=== PATIENT | female | born 1950 | race Caucasian/White ===

== ENCOUNTER 2017-05-25 21:49 | Emergency (ER) | payer OTHER ==
[2017-05-25 21:56] VITALS: BP 135/70
[2017-05-25] MEDS ORDERED: Acyclovir* 200 MG CAP PO ONE (22:22)
--- NOTE | 2017-05-25 22:23 | UC ---
Abdominal Pain Female HPI - HPI Summary HPI Summary: 66 yo female with band like pain from epigastrium around right subcostal area to mid back constant skin sensitive today noted a "bug bite on her back" - History of Current Complaint Chief Complaint: UCAbdominalPain Stated Complaint: ABDOMINAL COMPLAINT Time Seen by Provider: 05/25/17 22:02 Hx Obtained From: Patient Onset/Duration: Gradual Onset, Lasting Days Timing: Constant Severity Initially: Moderate Severity Currently: Moderate Pain Intensity: 4 Pain Scale Used: 0-10 Numeric Location: Epigastric, Other - see imGW Radiates: Yes Radiates to: Back Character: Burning Aggravating Factor(s): Nothing Alleviating Factor(s): Nothing Associated Signs and Symptoms: Positive: Negative Allergies/Adverse Reactions: Allergies Allergy/AdvReac Type Severity Reaction Status Date / Time Tetracycline Allergy Unknown Verified 05/25/17 21:56 Reaction Details Sulfa Allergy Unknown Uncoded 05/25/17 21:56 Reaction Details PMH/Surg Hx/FS Hx/Imm Hx Previously Healthy: Yes - Surgical History Surgical History: None - Family History Known Family History: Positive: None - Social History Alcohol Use: None Substance Use Type: None Smoking Status (MU): Never Smoked Tobacco Review of Systems Constitutional: Negative Skin: Negative, Rash Eyes: Negative ENT: Negative Respiratory: Negative Cardiovascular: Negative Gastrointestinal: Abdominal Pain Genitourinary: Negative Motor: Negative Neurovascular: Negative Musculoskeletal: Negative Neurological: Negative Psychological: Negative All Other Systems Reviewed And Are Negative: Yes Physical Exam Triage Information Reviewed: Yes Appearance: Well-Appearing, No Pain Distress, Well-Nourished Vital Signs: Initial Vital Signs Temp 98.0 F 05/25/17 21:52 Pulse 79 05/25/17 21:52 Resp 16 05/25/17 21:52 BP 135/70 05/25/17 21:52 Pulse Ox 98 05/25/17 21:52 Vital Signs Reviewed: Yes Eyes: Positive: Conjunctiva Clear ENT: Positive: Hearing grossly normal. Negative: Nasal congestion, Nasal drainage, Trismus, Muffled/hoarse voice Neck: Positive: Supple, Nontender Respiratory: Positive: Lungs clear, Normal breath sounds, No respiratory distress Cardiovascular: Positive: RRR, No Murmur Abdominal Exam: Normal Bowel Sounds: Positive: Present Musculoskeletal: Positive: Strength Intact, ROM Intact Neurological Exam: Normal Psychological Exam: Normal Skin Exam: Normal Abd Pain Female Course/Dx - Differential Dx/Diagnosis Provider Diagnoses: SHINGLES Discharge - Discharge Plan Condition: Stable Disposition: HOME Prescriptions: Famciclovir(NF) [Famvir(NF)] 500 mg PO TID #21 tab Patient Education Materials: Shingles (ED) Referrals: No Primary Care Phys,NOPCP [Primary Care Provider] - Additional Instructions: advil or aleve for pain call you provider and set up a follow up appt your urine had some white cells in it so we will send it for a culture Images Front/Back of Body, Lg (Josephine): 1 - CROP OF VESICLES 2 - PAIN 3 - PAIN
== END 2017-05-25 22:32 | disposition home or self-care (01) ==
LOC: UCEAST 21:49
DX: B02.9 Zoster without complications (principal); Z88.1 Allergy status to other antibiotic agents; Z88.2 Allergy status to sulfonamides
CPT/HCPCS: 81003; 87086; 99212; A9270-GY; G0463

== ENCOUNTER 2017-05-28 21:44 | Emergency (ER) | payer OTHER ==
[2017-05-28] MEDS ORDERED: NS 0.9% 1000 ML* 1,000 ML IV SCH (22:45)
[2017-05-28 23:13] LABS: Urine Bacteria Absent (Absent); Urine Bilirubin Negative (Negative); Urine Glucose Negative (Negative); Urine Nitrite Negative (Negative)
[2017-05-28 23:22] LABS: Hematocrit 39 % (35-47); Hemoglobin 13.2 g/dl (12.0-16.0); Mean Corpuscular HGB Conc 33 g/dl (31-36); Mean Corpuscular Hemoglobin 29 pg (27-31); Mean Corpuscular Volume 88 fL (80-97); Mean Platelet Volume 9 um3 (7.4-10.4); Red Cell Distribution Width 14 % (10.5-15); White Blood Count 10.8 10^3/ul (3.5-10.8)
[2017-05-28 23:25] LABS: Albumin 4.5 g/dL (3.2-5.2); BUN/Creatinine Ratio 14.5 (8-20); C Reactive Protein 5.49 mg/L (< 5.00); Calcium 9.2 mg/dL (8.6-10.3); EGFR African American 38.4 (>60); EGFR Non-African American 29.9 (>60); Globulin 3.3 g/dL (2-4); Magnesium 2.4 mg/dL (1.9-2.7); Potassium 3.9 mmol/L (3.5-5.0); Total Bilirubin 0.4 mg/dL (0.2-1.0); Total Protein 7.8 g/dL (6.4-8.9)
[2017-05-28 23:39] LABS: TSH (Thyroid Stimulating Horm) 5.44 mcIU/mL (0.34-5.60)
[2017-05-29] MEDS ORDERED: NS 0.9% 1000 ML* 2,000 ML IV ONE (00:35)
--- NOTE | 2017-05-29 02:27 | ED ---
Chicho Brock Nikita, scribed for Reji Day MD on 05/28/17 at 2348 . Complex/Multi-Sys Presentation - HPI Summary HPI Summary: This patient is a 66 year old F presenting to ED with a chief complaint of lower R CP and dizziness. Pt has been having intermittent lower R CP pain (rib area) since 1 week ago. Today at 193, pt felt dizziness (spinning, alleviated by sitting down). At 2044, she felt light-headed (lasted 10 minutes), sharp pain at her R shoulder blades and in the R side CP, and burning pain in the R side of the back. The CC is described as like someone is kicking me in the ribs . The patient rates the pain 5/10 in severity. Symptoms aggravated by nothing. Symptoms alleviated by nothing. Patient reports feeling warm. Patient denies weakness, numbness, diaphoresis, and abdominal pain. 3 days ago, pt was seen at [facility] for burning back pain and was dx with Shingles. - History Of Current Complaint Chief Complaint: EDDizziness Time Seen by Provider: 05/28/17 23:08 Hx Obtained From: Patient Onset/Duration: Sudden Onset, Lasting Weeks - 1 week ago, Still Present Timing: Intermittent, Lasting:, Minutes Severity Currently: Moderate Severity Initially: Moderate Location: Pain At: - R side CP and R side of back Character: Sharp, Unable To Describe - burning (from Shingles) Aggravating Factor(s): nothing Alleviating Factor(s): nothing Associated Signs And Symptoms: Positive: Other - Pt has been having intermittent lower R CP pain since 1 week ago. Today at 1930, pt felt dizziness (spinning, alleviated by sitting down). At 2044, she felt light-headed (lasted 10 minutes), sharp pain at her shoulder blades and in the R side CP, and burning pain in the R side of the back. Patient reports feeling warm. Patient denies weakness, numbness, diaphoresis, and abdominal pain. - Allergies/Home Medications Allergies/Adverse Reactions: Allergies Allergy/AdvReac Type Severity Reaction Status Date / Time Tetracycline Allergy Unknown Verified 05/25/17 21:56 Reaction Details Sulfa Allergy Unknown Uncoded 05/25/17 21:56 Reaction Details PMH/Surg Hx/FS Hx/Imm Hx Endocrine/Hematology History: Reports: Hx Diabetes - boarder line Denies: Hx Thyroid Disease Cardiovascular History: Reports: Hx Hypertension Respiratory History: Denies: Hx Asthma, Hx Chronic Obstructive Pulmonary Disease (COPD) GI History: Denies: Hx Ulcer Infectious Disease History: No Infectious Disease History: Denies: Hx Hepatitis, Hx Human Immunodeficiency Virus (HIV), Traveled Outside the [place] in Last 30 Days - Family History Known Family History: Positive: Diabetes Negative: Cardiac Disease, Hypertension - Social History Alcohol Use: None Substance Use Type: Reports: None Smoking Status (MU): Never Smoked Tobacco Review of Systems Positive: Other - Warm. Negative: Skin Diaphoresis Positive: Chest Pain - lower R side (rib area) Negative: Abdominal Pain Positive: Other - burning pain on R side of back (Shingles), sharp pain at her R shoulder blades Neurological: Other - dizziness (spinning), light-headed Negative: Weakness, Numbness Psychological: Normal All Other Systems Reviewed And Are Negative: Yes Physical Exam Triage Information Reviewed: Yes Vital Signs On Initial Exam: Initial Vitals Temp Pulse Resp BP Pulse Ox 97.7 F 95 20 138/72 99 05/28/17 21:47 05/28/17 21:47 05/28/17 21:47 05/28/17 21:47 05/28/17 21:47 Vital Signs Reviewed: Yes Appearance: Positive: Well-Appearing, No Pain Distress Skin: Positive: Warm, Skin Color Reflects Adequate Perfusion, Dry Head/Face: Positive: Other - 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 Eyes: Positive: EOMI, EDE ENT: Positive: Normal ENT inspection, TMs normal Neck: Positive: Supple, Nontender Respiratory/Lung Sounds: Positive: Clear to Auscultation, Breath Sounds Present Cardiovascular: Positive: RRR, Other - nontender Abdomen Description: Positive: Nontender, Soft Bowel Sounds: Positive: Present Musculoskeletal: Positive: Strength/ROM Intact, Other - Just to R of about T5, she has an area about 5cm x 3cm with vesicles with an erythematous base which appears to be shingles Neurological: Positive: Normal, Alert, Oriented to Person Place, Time, CN Intact II-III, Other - no neurological deficit other than the facial droop due to chronic bells palsy Psychiatric: Positive: Affect/Mood Appropriate - Guido Coma Scale Coma Scale Total: 15 Diagnostics - Vital Signs Vital Signs Temp Pulse Resp BP Pulse Ox 05/28/17 21:47 97.7 F 95 20 138/72 99 - Laboratory Lab Results: Lab Results 05/28/17 05/28/17 05/28/17 Range/Units 22:45 22:45 22:45 WBC 10.8 (3.5-10.8) 10^3/ul RBC 4.50 (4.0-5.4) 10^6/ul Hgb 13.2 (12.0-16.0) g/dl Hct 39 (35-47) % MCV 88 (80-97) fL MCH 29 (27-31) pg MCHC 33 (31-36) g/dl RDW 14 (10.5-15) % Plt Count 277 (150-450) 10^3/ul MPV 9 (7.4-10.4) um3 Neut % (Auto) 66.4 (38-83) % Lymph % (Auto) 24.9 L (25-47) % Park % (Auto) 6.0 (1-9) % Eos % (Auto) 1.9 (0-6) % Baso % (Auto) 0.8 (0-2) % Absolute Neuts (auto) 7.2 (1.5-7.7) 10^3/ul Absolute Lymphs (auto) 2.7 (1.0-4.8) 10^3/ul Absolute Monos (auto) 0.7 (0-0.8) 10^3/ul Absolute Eos (auto) 0.2 (0-0.6) 10^3/ul Absolute Basos (auto) 0.1 (0-0.2) 10^3/ul Absolute Nucleated RBC 0.01 10^3/ul Nucleated RBC % 0 INR (Anticoag Therapy) 0.90 (0.89-1.11) APTT 27.4 (26.0-36.3) seconds Sodium 138 (133-145) mmol/L Potassium 3.9 (3.5-5.0) mmol/L Chloride 104 (101-111) mmol/L Carbon Dioxide 26 (22-32) mmol/L Anion Gap 8 (2-11) mmol/L BUN 25 H (6-24) mg/dL Creatinine 1.72 H (0.51-0.95) mg/dL Est GFR ( Amer) 38.4 (>60) Est GFR (Non-Af Amer) 29.9 (>60) BUN/Creatinine Ratio 14.5 (8-20) Glucose 113 H (70-100) mg/dL Lactic Acid (0.5-2.0) mmol/L Calcium 9.2 (8.6-10.3) mg/dL Magnesium 2.4 (1.9-2.7) mg/dL Total Bilirubin 0.40 (0.2-1.0) mg/dL AST 15 (13-39) U/L ALT 18 (7-52) U/L Alkaline Phosphatase 115 H (34-104) U/L Troponin I 0.00 (<0.04) ng/mL C-Reactive Protein 5.49 H (< 5.00) mg/L Total Protein 7.8 (6.4-8.9) g/dL Albumin 4.5 (3.2-5.2) g/dL Globulin 3.3 (2-4) g/dL Albumin/Globulin Ratio 1.4 (1-3) Lipase 34 (11.0-82.0) U/L TSH 5.44 (0.34-5.60) mcIU/mL Urine Color Urine Appearance Urine pH (5-9) Ur Specific [place] (1.010-1.030) Urine Protein (Negative) Urine Ketones (Negative) Urine Blood (Negative) Urine Nitrate (Negative) Urine Bilirubin (Negative) Urine Urobilinogen (Negative) Ur Leukocyte Esterase (Negative) Urine WBC (Auto) (Absent) Urine RBC (Auto) (Absent) Ur Squamous Epith Cells (Absent) Urine Bacteria (Absent) Hyaline Casts (Absent) Urine Glucose (Negative) 05/28/17 05/28/17 Range/Units 22:45 22:45 WBC (3.5-10.8) 10^3/ul RBC (4.0-5.4) 10^6/ul Hgb (12.0-16.0) g/dl Hct (35-47) % MCV (80-97) fL MCH (27-31) pg MCHC (31-36) g/dl RDW (10.5-15) % Plt Count (150-450) 10^3/ul MPV (7.4-10.4) um3 Neut % (Auto) (38-83) % Lymph % (Auto) (25-47) % Park % (Auto) (1-9) % Eos % (Auto) (0-6) % Baso % (Auto) (0-2) % Absolute Neuts (auto) (1.5-7.7) 10^3/ul Absolute Lymphs (auto) (1.0-4.8) 10^3/ul Absolute Monos (auto) (0-0.8) 10^3/ul Absolute Eos (auto) (0-0.6) 10^3/ul Absolute Basos (auto) (0-0.2) 10^3/ul Absolute Nucleated RBC 10^3/ul Nucleated RBC % INR (Anticoag Therapy) (0.89-1.11) APTT (26.0-36.3) seconds Sodium (133-145) mmol/L Potassium (3.5-5.0) mmol/L Chloride (101-111) mmol/L Carbon Dioxide (22-32) mmol/L Anion Gap (2-11) mmol/L BUN (6-24) mg/dL Creatinine (0.51-0.95) mg/dL Est GFR ( Amer) (>60) Est GFR (Non-Af Amer) (>60) BUN/Creatinine Ratio (8-20) Glucose (70-100) mg/dL Lactic Acid 1.2 (0.5-2.0) mmol/L Calcium (8.6-10.3) mg/dL Magnesium (1.9-2.7) mg/dL Total Bilirubin (0.2-1.0) mg/dL AST (13-39) U/L ALT (7-52) U/L Alkaline Phosphatase (34-104) U/L Troponin I (<0.04) ng/mL C-Reactive Protein (< 5.00) mg/L Total Protein (6.4-8.9) g/dL Albumin (3.2-5.2) g/dL Globulin (2-4) g/dL Albumin/Globulin Ratio (1-3) Lipase (11.0-82.0) U/L TSH (0.34-5.60) mcIU/mL Urine Color Yellow Urine Appearance Cloudy Urine pH 5.0 (5-9) Ur Specific [place] 1.021 (1.010-1.030) Urine Protein 1+(30 mg/dl) H (Negative) Urine Ketones Negative (Negative) Urine Blood Negative (Negative) Urine Nitrate Negative (Negative) Urine Bilirubin Negative (Negative) Urine Urobilinogen Negative (Negative) Ur Leukocyte Esterase 3+ H (Negative) Urine WBC (Auto) 3+(>20/hpf) H (Absent) Urine RBC (Auto) 3+(>10/hpf) H (Absent) Ur Squamous Epith Cells Present H (Absent) Urine Bacteria Absent (Absent) Hyaline Casts Present H (Absent) Urine Glucose Negative (Negative) Result Diagrams: 05/28/17 22:45 05/28/17 22:45 Lab Statement: Any lab studies that have been ordered have been reviewed, and results considered in the medical decision making process. - CT CTA Chest CT Interpretation Completed By: Radiologist - No definite acute pathology. 5 mm left lower lobe nodule likely needs no additional evaluation if the patient is not at high risk for neoplasm. Bilateral renal stones and scarring. ED physician has reviewed this radiology report and agrees. Brain CT CT Interpretation Completed By: Radiologist - No acute pathology. ED physician has reviewed this radiology report and agrees. - Ultrasound No standard instances Ultrasound Interpretation Completed By: Radiologist - US Abdomen reveals large stone may be impacted in the gallbladder neck without definite secondary signs of cholecystitis. Mild CBD dilation is nonspecific but a CBD stone is not excluded. Consider further evaluation is consistent with HIDA scan. Mildly atrophic and scarred right kidney. ED physician has reviewed this radiology report and agrees. Re-Evaluation - Re-Evaluation First Eval Re-Evaluation Time: 01:21 Comment: Discussed with pt about CT and US results. Complex Multi-Symp Course/Dx Assessment/Plan: This patient is a 66 year old F presenting to ED with a chief complaint of lower R CP and dizziness. Pt has been having intermittent lower R CP pain (rib area) since 1 week ago. Today at 1930, pt felt dizziness (spinning , alleviated by sitting down). At 2044, she felt light-headed (lasted 10 minutes ), sharp pain at her R shoulder blades and in the R side CP, and burning pain in the R side of the back. The CC is described as like someone is kicking me in the ribs. The patient rates the pain 5/10 in severity. Symptoms aggravated by nothing. Symptoms alleviated by nothing. Patient reports feeling warm. Patient denies weakness, numbness, diaphoresis, and abdominal pain. 3 days ago, pt was seen at [facility] for burning back pain and was dx with Shingles. US abdomen reveals large stone may be impacted in the gallbladder neck without definite secondary signs of cholecystitis. Mild CBD dilation is nonspecific but a CBD stone is not excluded. Consider further evaluation is consistent with HIDA scan. Mildly atrophic and scarred right kidney. CTA chest reveals no definite acute pathology. 5 mm left lower lobe nodule likely needs no additional evaluation if the patient is not at high risk for neoplasm. Bilateral renal stones and scarring. Brain CT reveals no acute pathology. ED physician has reviewed these radiology reports and agrees. In the ED course, pt was given fluids. Medications reviewed. Allergies noted. Consulted Dr. Mcneil at [address] Mccord at 0139 who recommends to get a surgical consult, MRCP, and to admit the pt. Pt will be discharged. Pt is agreeable with this plan. DISCUSSED RESULTS WITH PATIENT. DISCUSSED WITH GI, DR MCCORD. HE RECOMMENDED ADMISSION, MRCP AND SURGICAL CONSULTATION. HOSPITALIST ACCEPTED FOR ADMISSION. PATIENT, AFTER CONSIDERATION, DECLINED ADMISSION. SHE WISHES TO F/U OUT PATIENT. SHE AGREES TO RETURN IF WORSE OR ANY QUESTIONS/CONCERNS. NO CRITICAL CARE TIME. - Diagnoses Provider Diagnoses: Biliary colic, Gall stone, Chest pain, Abdominal pain - Physician Notifications Discussed Care Of Patient With: Halina Mcneil Time Discussed With Above Provider: 01:27 Instructed by Provider To: Other - Consulted Dr. Mcneil about pt. Consulted Dr. Mccord at 0139 who recommends to get a surgical consult, MRCP, and to admit the pt. Discharge - Discharge Plan Condition: Stable Disposition: HOME Patient Education Materials: Chest Pain (ED), Biliary Colic (ED), Gallstones ( ED), Abdominal Pain (ED) Referrals: Giuliana Gallegos NP [Primary Care Provider] - [facility] [Provider Group] [facility] [Provider Group] Additional Instructions: FOLLOW UP WITH YOUR PRIMARY CARE DOCTOR, GI AND SURGERY, DR CELIS. CALL TOMORROW FOR FOLLOW UP. RETURN TO THE EMERGENCY DEPARTMENT FOR ANY WORSENING OF YOUR CONDITION; PAIN, FEVER, VOMITING, YOU FEEL ILL OR QUESTIONS OR CONCERNS. The documentation as recorded by the scribe, Chicho,Anjel accurately reflects the service I personally performed and the decisions made by me, Reji Day MD.
[2017-05-29 02:35] VITALS: BP 133/76
--- NOTE | 2017-05-29 08:14 | RAD ---
Indication: Sudden onset dizziness and lightheadedness. Comparison: April 04, 2009 Technique: Noncontrast CT vertex of skull through foramen magnum. Report: The sulci, ventricles, and basal cisterns are normal for age. Velasquez matter white matter differentiation is preserved without evidence for edema. No intra or extra axial hemorrhage, mass, or fluid collection detected. Unremarkable visualized orbital contents. Unremarkable calvarium and skull base. Unremarkable scalp. The visualized paranasal sinuses and mastoid air spaces are clear. IMPRESSION: Negative unenhanced head CT.
--- NOTE | 2017-05-29 08:14 | RAD ---
HISTORY: Right upper quadrant pain. COMPARISONS: CT abdomen pelvis September 20, 2014 demonstrated at least one large hyperattenuating stones in the gallbladder measuring 2.2 cm. TECHNIQUE: Multiple transverse and longitudinal ultrasound images were obtained of the right upper quadrant. FINDINGS: LIVER: The liver is homogenously hyperechogenic without focal suspicious mass or surface irregularity.. Normal hepatic and portal venous blood flow is duplicated with color flow imaging. There is no gross intrahepatic biliary duct dilatation. GALLBLADDER AND EXTRAHEPATIC BILIARY DUCT: Within the gallbladder lumen there is a 2.8 cm echogenic shadowing stone at appears to be immobile at the gallbladder neck. The gallbladder wall is top normal in thickness measuring 3 mm. There is no definite pericholecystic fluid. There is no pericholecystic fluid or gallbladder wall thickening. The common bile duct measures a maximum diameter of 8 mm. PANCREAS: The portions of the pancreas not obscured by bowel gas are normal in appearance. RIGHT KIDNEY: The right kidney is normal in size, morphology and echogenicity. IMPRESSION: 1. CHOLELITHIASIS WITH A MILDLY ENLARGED COMMON BILE DUCT MEASURING 8 MM IN WIDTH. FURTHER CHARACTERIZATION COULD BE MADE WITH HIDA SCAN IF CLINICALLY WARRANTED. 2. LIKELY HEPATIC STEATOSIS OR OTHER CHRONIC INFILTRATIVE DISEASE OF THE LIVER.
--- NOTE | 2017-05-29 08:20 | RAD ---
INDICATION: Chest pain COMPARISON: CT abdomen pelvis July 20, 2015 TECHNIQUE: Noncontrast axial source images were obtained from the thoracic inlet to the hemidiaphragms. Coronal and sagittal reconstructed images were acquired. The visualized neck to include the thyroid appear normal. Chest wall: There are no acute abnormalities of the bony thorax or chest wall. There is no supraclavicular, infraclavicular, or axillary lymphadenopathy. Lungs : There are no pulmonary parenchymal masses or infiltrates. The pulmonary interstitium appears normal. There are no endobronchial lesions. Cardiomediastinal structures: The heart is normal in size. There is no pericardial effusion. There is no evidence of aortic aneurysm or dissection. The pulmonary vessels appear normal. There is no mediastinal or hilar adenopathy. The esophagus appears normal. Pleura : There are no pleural-based masses or effusions. Other: Limited views the upper abdomen show a large gallstone in the neck of the gallbladder, unchanged. There is left bilateral renal parenchymal scarring with lobulated contours of the kidneys and left renal calcifications. The appearance of the visualized portions of each kidney is unchanged. IMPRESSION: NO ACUTE CT FINDINGS. NO ACUTE LUNG FINDINGS. CHOLELITHIASIS, UNCHANGED. RENAL SCARRING WITH RENAL CALCIFICATIONS, UNCHANGED
--- NOTE | 2017-05-31 13:00 | PN ---
Progress Note - Progress Note Date of Service: 05/31/17 Note: Patient urine culture grew Strept group b 25-50,000 which is not a significant amount to treat at this time being asymptomatic.
== END 2017-05-29 02:33 | disposition home or self-care (01) ==
LOC: ED 21:44
DX: R07.9 Chest pain, unspecified (principal); K80.50 Calculus of bile duct without cholangitis or cholecystitis without obstruction; R10.9 Unspecified abdominal pain; R42 Dizziness and giddiness; Z86.79 Personal history of other diseases of the circulatory system; R73.09 Other abnormal glucose
CPT/HCPCS: 36415; 70450; 71250; 76705; 80053; 81003; 81015; 83605; 83690; 83735; 84443; 84484; 85025; 85379; 85610; 85730; 86140; 87077; 87086; 99284

== ENCOUNTER 2017-09-22 14:28 | Emergency (ER) | payer OTHER ==
--- NOTE | 2017-09-22 15:58 | RAD ---
INDICATION: Fall. Left elbow injury COMPARISON: Left elbow October 16, 2015 TECHNIQUE: AP, lateral, and oblique views were obtained. FINDINGS: There is a fracture the radial head. The fractures nondisplaced. No other fractures are evident. There is a joint effusion consistent with hemarthrosis in the setting of acute trauma. IMPRESSION: AGE-INDETERMINATE RADIAL HEAD FRACTURE. HEMARTHROSIS.
--- NOTE | 2017-09-22 15:58 | RAD ---
INDICATION: Fall. Left wrist injury COMPARISON: Left wrist September 07, 2015 TECHNIQUE: AP, lateral, and oblique views were obtained. FINDINGS: There is no acute fracture. There is an old ulnar styloid fracture. The radiocarpal joint is intact. The carpals articulate normally. The soft tissues are normal. IMPRESSION: REMOTE ULNAR STYLOID FRACTURE. NO ACUTE FINDINGS.
[2017-09-22 17:02] VITALS: BP 140/80
--- NOTE | 2017-09-22 18:02 | UC ---
Elbow Pain - HPI Summary HPI Summary: 66 yo WF h/o DM and HTN c/o left elbow pain s/p fall today in dining room floor with wet shoes. Has old radial head fracture at the same site of injury 08/2015 and today she has trouble extending her arm and with pronation and supination - History of Current Complaint Chief Complaint: UCUpperExtremity Stated Complaint: ARM INJURY Time Seen by Provider: 09/22/17 17:13 Hx Obtained From: Patient, Family/Enroute Controller Severity Initially: Moderate Pain Intensity: 7 Character: Sharp, Aching, Throbbing Aggravating Factor(s): Movement Alleviating Factor(s): Rest Associated Signs And Symptoms: Positive: Swelling - Allergies/Home Medications Allergies/Adverse Reactions: Allergies Allergy/AdvReac Type Severity Reaction Status Date / Time MS Tetracycline Allergy Unknown Verified 09/22/17 14:58 [Tetracycline] Reaction Details Sulfa Allergy Unknown Uncoded 09/22/17 14:58 Reaction Details PMH/Surg Hx/FS Hx/Imm Hx Previously Healthy: No Endocrine History: Diabetes Cardiovascular History: Hypertension - Surgical History Surgical History: None - Family History Known Family History: Positive: None, Diabetes Negative: Cardiac Disease, Hypertension - Social History Alcohol Use: None Substance Use Type: None Smoking Status (MU): Never Smoked Tobacco Review of Systems Constitutional: Negative Skin: Negative Eyes: Negative ENT: Negative Respiratory: Negative Cardiovascular: Negative Gastrointestinal: Negative Genitourinary: Negative Motor: Decreased ROM - cannot extend left elbow or rotate her forearm due to pain, Other Neurovascular: Negative Musculoskeletal: Negative Neurological: Negative Psychological: Negative All Other Systems Reviewed And Are Negative: Yes Physical Exam Triage Information Reviewed: Yes Vital Signs: Initial Vital Signs Temp 36.2 C 09/22/17 14:53 Pulse 70 09/22/17 14:53 Resp 18 09/22/17 14:53 BP 138/80 09/22/17 14:53 Pulse Ox 100 09/22/17 14:53 Eye Exam: Normal ENT Exam: Normal Dental Exam: Normal Neck exam: Normal Neck: Positive: 1 Respiratory Exam: Normal Cardiovascular Exam: Normal Abdominal Exam: Normal Musculoskeletal: Positive: Strength Limited @ - difficulty extending left elbow and with pronation and supination of left forearm, TTP in the left radial head region, ROM intact on left wrist and fingers, NVI, 2+ radial pulse Neurological Exam: Normal Psychological Exam: Normal Skin Exam: Normal Elbow Pain Course/Dx - Course Course Of Treatment: XR Orthoglass posterior splint applied with sling pt has a personal orthopedist whom she will call on Monday for follow up. 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 Fall. Elevated BP due to acute pain. H/o HTN Discharge - Discharge Plan Condition: Stable Disposition: HOME Patient Education Materials: Elbow Fracture (ED) Forms: *Work Release Referrals: Giuliana Gallegos NP [Primary Care Provider] - Additional Instructions: Follow up with orthopedics on monday
== END 2017-09-22 18:00 | disposition home or self-care (01) ==
LOC: UCEAST 14:28
DX: S52.125A Nondisplaced fracture of head of left radius, initial encounter for closed fracture (principal); S52.615A Nondisplaced fracture of left ulna styloid process, initial encounter for closed fracture; W18.39XA Other fall on same level, initial encounter; Y93.9 Activity, unspecified; Y92.001 Dining room of unspecified non-institutional (private) residence as the place of occurrence of the external cause; E11.9 Type 2 diabetes mellitus without complications; I10 Essential (primary) hypertension; Z88.2 Allergy status to sulfonamides
CPT/HCPCS: 99212; G0463

== ENCOUNTER 2018-12-18 09:19 | Day surgery (SDC) | payer MEDICARE, OTHER ==
[~2018-12-18 09:19] MED LIST: Buffered Lidocaine 1% SYRIN* 1 ML/SYRINGE INTRADERM ONE; Lactated Ringers 1000 ML Bag* 1,000 ML IV SCH
[2018-12-18] MEDS ORDERED: Buffered Lidocaine 1% SYRIN* 1 ML/SYRINGE INTRADERM ONE (09:39)
[2018-12-18] MEDS ORDERED: ceFAZolin 2 GM PREMIX in ORs 2 GM/50 ML BAG IVPB ONE (09:39)
[2018-12-18] MEDS ORDERED: fentaNYL* 50 MCG/ML 2 ML VIAL (100 MCG VIAL) ONE ×3 (11:01→14:10)
[2018-12-18] MEDS ORDERED: Midazolam* 1 MG/ML 2 ML VIAL (2 MG) ONE (11:01)
[2018-12-18] MEDS ORDERED: Bupivacaine 0.25% EPI 200,000* 30 ML SDV ONE (11:06)
[2018-12-18] MEDS ORDERED: Famotidine IV* 10 MG/ML 2 ML (20 mg) ONE (11:17)
[2018-12-18] MEDS ORDERED: Dexamethasone IV* 4 MG/ML 1 ML (4 MG) ONE (11:29)
[2018-12-18] MEDS ORDERED: Propofol* 10 MG/ML 20 ML BTL ONE (11:29)
[2018-12-18] MEDS ORDERED: Ondansetron INJ* 2 MG/ML VIAL ONE ×2 (11:29→14:11)
[2018-12-18] MEDS ORDERED: Succinylcholine* 20 MG/ML 10 ML VIAL ONE (11:29)
[2018-12-18] MEDS ORDERED: Ketorolac INJ* 30 MG/ML 1 ML VIAL ONE (11:29)
[2018-12-18] MEDS ORDERED: Cisatracurium* 2 MG/ML MDV 5 ML ONE (11:30)
[2018-12-18] MEDS ORDERED: DiMENhydriNATE IV* 50 MG/ML VIAL IV PUSH PRN (11:42)
[2018-12-18] MEDS ORDERED: Ondansetron INJ* 2 MG/ML VIAL IV PRN (11:42)
[2018-12-18] MEDS ORDERED: Acetaminophen TAB* 325 MG PO PRN (11:42)
[2018-12-18] MEDS ORDERED: Naloxone* 0.4 MG/ML 1 ML VIAL IV PRN (11:42)
[2018-12-18] MEDS ORDERED: fentaNYL* 50 MCG/ML 2 ML VIAL (100 MCG VIAL) IV PRN (11:42)
[2018-12-18] MEDS ORDERED: Scopolamine 1.5 mg* PATCH TRANSDERM PRN (11:42)
[2018-12-18] MEDS ORDERED: diPHENhydraMINE IV* 50 MG/ML 1 ml VIAL (BENADRYL) IV PRN (11:42)
[2018-12-18] MEDS ORDERED: PROCHLORPERAZINE INJ 5 MG/ML 2 ML VIAL IV PRN (11:42)
[2018-12-18] MEDS ORDERED: HYDROcodone/ACETAMIN 5-325 MG* 1 TAB PO PRN ×2 (11:42)
[2018-12-18] MEDS ORDERED: Lidocaine 2% PF * 5 ML VIAL ONE (11:47)
[2018-12-18] MEDS ORDERED: EPHEDrine (Pressors)* 50 MG/ML VIAL ONE (11:50)
[2018-12-18] MEDS ORDERED: Scopolamine 1.5 mg* PATCH ONE (14:11)
[2018-12-18] MEDS ORDERED: DiMENhydriNATE IV* 50 MG/ML VIAL ONE (14:18)
[2018-12-18] MEDS ORDERED: Acetaminophen TAB* 325 MG ONE (14:45)
[2018-12-18 15:56] VITALS: BP 122/75
--- NOTE | 2018-12-19 02:11 | OP ---
CC: Giuliana Gallegos NP at [facility] [place] * DATE OF OPERATION: 12/18/18 - [facility] DATE OF : 54 SURGEON: Dr. Bautista. CHIROPRACTIC TEACHER: Jagruti Murrell NP ANESTHESIA: General endotracheal. ANESTHESIOLOGIST: Dr. Mccain. PRE-OP DIAGNOSIS: Symptomatic cholelithiasis. POST-OP DIAGNOSIS: Symptomatic cholelithiasis. OPERATIVE PROCEDURE: Laparoscopic cholecystectomy. ESTIMATED BLOOD LOSS: Minimal. IV FLUIDS: Crystalloid. SPECIMENS: Gallbladder and contents. DRAINS: None. COMPLICATIONS: None. COUNTS: The instrument, needle, and sponge counts were correct. DESCRIPTION OF PROCEDURE: The patient was brought to the operating room and placed on the table supine. Sequential compression devices were placed on both lower extremities. General anesthesia was administered. The abdomen was prepped and draped in the usual sterile fashion and a time-out was performed. Local anesthetic was infiltrated to the skin and soft tissue prior to making each incision. Transumbilical incision was created using an open technique. After accessing the peritoneal cavity, carbon dioxide was insufflated through a 12-mm trocar to a pressure of 15 mmHg. Under direct visualization, a 5-mm trocar was placed in the subxiphoid position in the right upper quadrant. Gallbladder was identified and appeared to be chronically inflamed. There was a large stone impacted in the neck of the gallbladder that was immobile. This made the manipulation of the gallbladder difficult. Gallbladder was also rather tensely distended. Upon grasping the gallbladder with the grasped at the fundus and retracting it cephalad, the gallbladder entered and clear bile was noted. Endoscope suction was used to control spillage. Due to the large gallstone in the neck, it was decided to try and milk this back towards the fundus; however, again this was quite large and impacted. Therefore , in order to dislodge it, a cholecystomy was enlarged in order to extract the stone. After doing so, the gallbladder could be properly manipulated and the peritoneum investing the gallbladder and the infundibulum was excised and peeled away. The cystic duct and cystic artery were able to bluntly dissected out and doubly clipped and divided. The gallbladder was freed from its attachments to the liver staying in the avascular plane with the use of a cautery. The gallbladder was freed. The gallbladder and the large stone were placed in an endoscopic retrieval bag and retrieved through the umbilical port site. Copious lavage of the abdomen was performed until clear. Hemostasis was assured and clips were noted to be intact. Ports were removed under direct visualization and carbon dioxide was released. The umbilical site was closed with 0 Vicryl to approximate the fascia. Skin incisions were closed with 4-0 Monocryl in subcuticular fashion. Steri-Strips applied. The patient tolerated the procedure well, was extubated and transferred to the recovery room in stable condition. [id number]/[facility] #: [id number] [facility]ITAL[facility]audia
[2018-12-21] MEDS ORDERED: Scopolamine PATCH Remove* 1 NOTE MISC PATCH OFF ONE (11:43)
== END 2018-12-18 15:55 | disposition home or self-care (01) ==
LOC: OR 09:19
PROVIDERS: ATTEND Surgery
DX: K80.10 Calculus of gallbladder with chronic cholecystitis without obstruction (principal); E11.9 Type 2 diabetes mellitus without complications; Z79.84 Long term (current) use of oral hypoglycemic drugs; I10 Essential (primary) hypertension; E78.5 Hyperlipidemia, unspecified
CPT/HCPCS: 88304; A9270-GY; J0330; J0690; J1100; J1240; J1885; J2250; J2405; J2704; J3010

== ENCOUNTER 2022-07-22 06:46 | Observation (INO) ==
[~2022-07-22 06:46] MED LIST changes: +Buffered Lidocaine 1% SYRIN 1 ml INTRADERM ONE; -Buffered Lidocaine 1% SYRIN* 1 ML/SYRINGE INTRADERM ONE; +Famotidine IV 10 MG/ML 2 ml VIAL (20 mg) IV ONE; -Lactated Ringers 1000 ML Bag* 1,000 ML IV SCH; +Lactated Ringers 1000 ml BAG 1,000 ML IV SCH
[2022-07-22] MEDS ORDERED: Famotidine IV 10 MG/ML 2 ml VIAL (20 mg) ONE (07:39)
[2022-07-22] MEDS ORDERED: ceFAZolin 2 GM PREMIX 2 GM/50 ML BAG ONE (07:39)
[2022-07-22] MEDS ORDERED: Midazolam 2 mg/2 ml VIAL 1 mg/ml 2 ml VIAL (2 mg) ONE (08:11)
[2022-07-22] MEDS ORDERED: Lidocaine 2% PF 5 ML VIAL ONE (08:11)
[2022-07-22] MEDS ORDERED: fentaNYL 100 mcg/2 ml 50 MCG/ML VIAL ONE ×2 (08:12→12:41)
[2022-07-22] MEDS ORDERED: Phenylephrine IV 10 MG/ML 1 ml VIAL ONE (08:20)
[2022-07-22] MEDS ORDERED: Rocuronium 50 mg VIAL 10 mg/ml 5 ml VIAL (50 mg) ONE (08:59)
[2022-07-22] MEDS ORDERED: Dexamethasone IV 4 MG/ML VIAL 1 ml VIAL ONE (08:59)
[2022-07-22] MEDS ORDERED: Ondansetron 4 mg VIAL 2 MG/ML 2 ml VIAL ONE ×2 (08:59→15:35)
[2022-07-22] MEDS ORDERED: Ropivacaine 5 MG/ML 20 ML VIAL 0.5% (100 MG) ONE (09:12)
[2022-07-22] MEDS ORDERED: HYDROmorphone 1 MG/1 ML SYRINGE IV PRN (10:34)
[2022-07-22] MEDS ORDERED: Naloxone 0.4 mg VIAL 0.4 mg/ml 1 ml VIAL IV PRN (10:34)
[2022-07-22] MEDS ORDERED: Magnesium Hydroxide LIQ 30 ML UDC PO PRN (10:37)
[2022-07-22] MEDS ORDERED: Lactulose 30 ml UDC PO PRN (10:37)
[2022-07-22] MEDS ORDERED: Ondansetron 4 mg VIAL 2 MG/ML 2 ml VIAL IV PRN (10:37)
[2022-07-22] MEDS ORDERED: Morphine 2 MG/ML SYRINGE IV PRN (10:37)
[2022-07-22] MEDS ORDERED: Ondansetron ODT 4 mg TAB 4 MG TAB PO PRN (10:37)
[2022-07-22] MEDS ORDERED: HYDROmorphone 0.5 MG/0.5 ML SYRINGE ONE (10:41)
[2022-07-22] MEDS ORDERED: Sugammadex 500 MG/5 ML 5 ml VIAL IV PUSH ONE (11:33)
[2022-07-22] MEDS: fentaNYL 100 mcg/2 ml 50 MCG/ML VIAL IV PRN ×3 (12:42→14:06)
[2022-07-22] MEDS ORDERED: Acetaminophen IV 1 GM/100ML 1,000 MG/100 ML BAG IV ONE ×2 (12:59→13:00)
[2022-07-22] MEDS ORDERED: Dextrose 50% Syringe 50 ml 25 GM/50 ML SYRINGE IV PUSH PRN (15:17)
[2022-07-22] MEDS: Lactated Ringers 1000 ml BAG 1,000 ML IV SCH (15:38)
[2022-07-22] MEDS: ceFAZolin 1 GM ADVAN 1 GM in NS 0.9% 50 ML 50 ML IVPB SCH (18:11)
[2022-07-22] MEDS: Magnesium Hydroxide LIQ 30 ML UDC PO SCH (20:25)
[2022-07-22] MEDS ORDERED: CMCS:SitaGLIPtin 100 mg TAB (NF) PO SCH (21:00)
[2022-07-23] MEDS: ceFAZolin 1 GM ADVAN 1 GM in NS 0.9% 50 ML 50 ML IVPB SCH ×2 (01:10→09:37)
[2022-07-23] MEDS: Lactated Ringers 1000 ml BAG 1,000 ML IV SCH (02:42)
[2022-07-23 06:00] LABS: Hematocrit 29 % (35-47); Hemoglobin 9.3 g/dL (12.0-16.0); Mean Platelet Volume 8.7 fL (7.4-10.4); Platelet Count 197 10^3/uL (150-450)
[2022-07-23 06:47] LABS: Calcium 7.8 mg/dL (8.6-10.3); Potassium 4.8 mmol/L (3.5-5.0)
[2022-07-23 06:53] LABS: eGFR CKD-EPI 45.8 (>60)
[2022-07-23] MEDS ORDERED: Vitamin THERAPEUTIC TAB PO SCH (09:00)
[2022-07-23] MEDS: Magnesium Hydroxide LIQ 30 ML UDC PO SCH (09:35)
[2022-07-23 12:20] VITALS: BP 124/42
== END 2022-07-23 13:40 | disposition home or self-care (01) ==
LOC: AA 06:46 → INTOOBSV 06:46 → SSU 10:38
PROVIDERS: ADMIT Orthopaedic Surgery Adult Reconstructive Orthopaedic Surgery; ATTEND Orthopaedic Surgery Adult Reconstructive Orthopaedic Surgery